=== PATIENT | female | born 1960 | race Caucasian/White ===

== ENCOUNTER 2019-03-16 12:49 | Emergency (ER) | payer OTHER ==
[~2019-03-16] VITALS: Ht 157.5 cm; Wt 85.0 kg
[2019-03-16] MEDS ORDERED: AMLO5TAB9 PO (13:11)
[2019-03-16] MEDS ORDERED: ATOR20TA86 PO (13:11)
[2019-03-16 15:37] VITALS: BP 131/78
== END 2019-03-16 15:46 | disposition home or self-care (01) ==
LOC: EMS 12:51
DX: F32.9 Major depressive disorder, single episode, unspecified (principal); F43.20 Adjustment disorder, unspecified; E78.00 Pure hypercholesterolemia, unspecified; I10 Essential (primary) hypertension; Z79.899 Other long term (current) drug therapy; Z98.890 Other specified postprocedural states